=== PATIENT | male | born 1950 | race Caucasian/White ===

== ENCOUNTER → 2017-02-03 14:51 | Inpatient (IN) | payer MEDICAID, OTHER ==
--- NOTE | 2017-01-31 08:47 | GHP ---
[f rep st] PREOP HISTORY AND PHYSICAL DATE OF ADMISSION: 02/01/2017 PREOP DIAGNOSIS: Avascular necrosis, left femoral head. PLANNED PROCEDURE: Left total hip arthroplasty through an anterior approach. HPI: The patient is a 66-year-old male who is status post a right femoral neck fracture with some A VN that underwent a total hip arthroplasty on the right. He has done well with that. He now is tanna dy to proceed with a total hip arthroplasty on the left. PRIOR MEDICAL HISTORY: Hypertension, high cholesterol. MEDICATIONS: Atorvastatin 20 mg, carvedilol 12.5 mg, lisinopril 40 mg, lovastatin 20 mg, amlodipine 10 mg, benazepril 40 mg. ALLERGIES: No known drug allergies. SOCIAL HISTORY: Retired. Does not smoke. Occasional alcohol use. REVIEW OF SYSTEMS: No shortness of breath or chest pain. PHYSICAL EXAM: VITAL SIGNS: Blood pressure is 167/86, heart rate is 88, respiratory rate is 14 on room air. HEENT: Normocephalic, atraumatic. Extraocular muscles intact. NECK: Supple. There is no lymphadenopathy. No JVD. CHEST: Clear to auscultation. CARDIOVASCULAR: Regular rate and rhy thm. ABDOMEN: Obese, soft, nondistended. No hepatosplenomegaly. EXTREMITIES: Leg lengths are eq ual. Left hip has full extension, 100 degrees of flexion. Neutral internal rotation. About 10 deg daniel of external rotation. Both these motions cause pain. He has 20 degrees of abduction. Motor s trength hip flexion, knee extensors are 4/5. Remainder of the lower extremity strength is 5/5. He has 1+ dorsalis pedis and posterior tibial pulses. X-RAYS: Two views of the hip show severe osteoarthritis of the left hip. There is some collapse of the femoral head. ASSESSMENT: Osteoarthritis, left hip with probable avascular necrosis. PLAN: I recommend proceeding with a total hip arthroplasty on the left. He has done well on the [facility] side. He is ready to proceed. The risks and benefits, including a 1% to 2% dislocation rate an d potential blood clots were all discussed. He understands these risks and wished to proceed. We w ill plan on surgery next Monday afternoon at the [facility]. /[id number]/MODL
--- NOTE | 2017-02-01 12:57 | PDHPUP ---
History & Physical Update H&P update statement: This history and physical update is based on an assessment of the patient which was completed after admission or registration (within 24 hours), but prior to the surgery/procedure. H&P update: H&P reviewed & patient examined, no change in patient's condition since H&P completed
--- NOTE | 2017-02-01 13:01 | PDANEPAE ---
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 RT HIP FRACTURE. REMVL LIPOMA BUTTOCKS AREA ANE Review of Systems - Exercise capacity METS (RN): 4 METS ANE Patient History - Allergies Allergies/Adverse Reactions: No Known Allergies Allergy (Unverified 09/27/14 10:37) - Home Medications Home Medications: Aspirin [Aspirin 325 mg (*)] 325 mg PO HS 09/27/14 [Last Taken 01/30/17 22:00] Lovastatin 20 mg PO DAILY06 09/27/14 [Last Taken 01/31/17 07:00] BENAZEPRIL HCL DAILY06 01/19/17 [Last Taken 01/31/17 07:00] Carvedilol BID 01/19/17 [Last Taken 02/01/17 07:00] HCTZ (*) DAILY06 01/19/17 [Last Taken 01/31/17 07:00] Herbal Drugs DAILY 01/19/17 [Last Taken 1 Week Ago] - NPO status NPO Since - Liquids (Date): 02/01/17 NPO Since - Liquids (Time): 09:30 NPO Since - Solids (Date): 01/31/17 NPO Since - Solids (Time): 23:59 - Anes Hx Anes Hx: no prior problems - Smoking Hx Smoking Status: Former smoker ANE Labs/Vital Signs - Vital Signs Blood Pressure: 156/91 Heart Rate: 94 Respiratory Rate: 18 O2 Sat (%): 95 Height: 180.34 cm Weight: 91.626 kg ANE Physical Exam - Airway Mallampati Score: Class 2 Mouth exam: normal dental/mouth exam - Pulmonary Pulmonary: no respiratory distress - Cardiovascular Cardiovascular: regular rate and rhythym - ASA Status ASA Status: II ANE Anesthesia Plan Anesthesia Plan: GA w LMA (pt prefers not to have sab)
--- NOTE | 2017-02-01 15:20 | POSTOPPROG ---
Post Op Note Date of Operation: 02/01/17 Surgeon: Adama Hernandez Precise Winder: Virgen Stout Anesthesiologist: Jean Carlos Anesthesia: GET(General Endotracheal) Pre-op Diagnosis: AVN Lt hip Post-op Diagnosis: same Procedure: LT MATTHEW via anterior approach Findings: AVN head Inf/Abcess present in the surg proc area at time of surgery?: No EBL: 100-500 Complications: none
[2017-02-01] MEDS: HYDROmorphONE/DILAUDID 1 MG/ML SYR IVP PRN ×6 (16:02→16:52)
--- NOTE | 2017-02-01 16:04 | POSTANESTH ---
Post Anesthetic Evaluation Cardiovascular Status: Normal, Stable Respiratory Status: Normal, Stable Level of Consciousness/Mental Status: Can Participate in Eval Pain Control: Adequate, Prn Tx Ordered Nausea/Vomiting Control: Adequate, Prn Tx Ordered Complications Possibly Related to Anesthesia: None Noted
[2017-02-01] MEDS: fentaNYL 100 MCG/2 ML INJ IVP PRN ×2 (16:08→16:18)
[2017-02-01] MEDS: oxyCODONE IR 5 MG TAB PO PRN (17:13)
[2017-02-01] MEDS: ACETAMINOPHEN 325 MG TAB PO SCH (18:58)
[2017-02-01] MEDS: ceFAZolin 2 GM/DEXTROSE 100 ML IV SCH (22:03)
[2017-02-01] MEDS: LR 1,000 ML IV SCH (22:04)
[2017-02-01] MEDS: FAMOTIDINE 20 MG TAB PO SCH (22:04)
[2017-02-01] MEDS: SENNOSIDES/DOCUSATE SODIUM TAB PO SCH (22:05)
[2017-02-01] MEDS: CYCLOBENZAPRINE 10 MG TAB PO PRN (22:18)
[2017-02-02] MEDS: ACETAMINOPHEN 325 MG TAB PO SCH ×5 (00:15→23:55)
--- NOTE | 2017-02-02 02:19 | GOP ---
[f rep st] OPERATIVE REPORT DATE OF OPERATION: 02/01/2017 SURGEON: Adama Hernandez MD OFFICE MESSENGER HELPER: Virgen Stout MD ANESTHESIA: General. ANESTHESIOLOGIST: Trever Evangelista MD PREOPERATIVE DIAGNOSIS: Avascular necrosis, left femoral head. POSTOPERATIVE DIAGNOSIS: avascular necrosis, left femoral head. PROCEDURE PERFORMED: Left total hip arthroplasty through an anterior approach. FINDINGS: ESTIMATED BLOOD LOSS: 400 mL. INDICATIONS: The patient is a 66-year-old male with bilateral AVN. He underwent a right total hip arthroplasty. He has worsening pain, collapse on the left side, and decision was made to proceed wi th a left total hip arthroplasty. DESCRIPTION OF PROCEDURE: After appropriate informed consent was obtained, patient was taken to the operating room, placed supine on the operative table. Timeout was performed. Patient was identifi ed, correct site was identified, matched with the radiographs available in the room. He received [address] Evangelista administered general endotracheal tube anesthesia. He was then positioned o n the operating room table with the arch table supporting the left lower extremity, a well-padded we leg harrison supporting the right lower extremity. The left hip was prepped and draped usual steri le fashion. I made a standard anterior incision. Bleeding was controlled with electrocautery. Fascia overlying the TFL was incised, and I bluntly dissected down to the circumflex femoral vessels. These were ca uterized using the Aquamantys device. Then using a James elevator, soft tissues were elevated off th e anterior aspect of the hip capsule. A Cobra retractor was placed around the inferior femoral neck , superior femoral neck. I incised the capsule and performed a capsulotomy. Retractors were then p laced within the capsule, and I made my femoral neck cut with the oscillating saw. Head and neck we re removed. What was remaining of the labrum was removed with a rongeur as superior bone spurs. I then began reaming the cup, starting at a 55 and reaming up to a 59. We trialed a 59 and placed a 6 0 cup with 1 superior screw. Confirmed the position with AP fluoroscopic images. A neutral liner w as placed. We then turned our attention to the femur. The remaining capsule was removed posteriorly. We exten ded the hip to the floor, adducted it 30 degrees and externally rotated it to 90. We then began bro aching up to a size 5 with good purchase. We trialed a 0+5 and 7.5. The 7.5 gave us the best stabi lity. The hip was reduced and dislocated, reversing the procedure from taking it from abduction and extension up to neutral extension and neutral internal rotation and adduction. The final #5 stem w as tapped into place, tapped our 7.5 mm head, reduced the hip. It was stable at external rotation t o 90 degrees. Final imaging was obtained. Wound was irrigated. The fascia overlying the TFL was c losed with 0 Vicryl. I placed 5 mL of PRP beneath the capsular repair, 5mL on top of the capsular r epair. Superficial layers closed with 2-0 Vicryl. Skin was closed with a 4-0 Quill stitch in a sub cuticular fashion. Steri-Strips were applied to the skin. Occlusive dressing was applied. The patient was awakened from anesthesia, taken to recovery room in satisfactory condition. There w ere no immediate intraoperative complications. Virgen Stout' assistance was required throughout the en tire case. IMPLANT USED: A [place] size 5 Accolade II, 127-degree neck angle stem with a 60 Tritanium hemisphe rical cup, 1 superior screw, neutral liner and a +7.5 mm ceramic head. COMPLICATIONS: None. DRAINS: None. /[id number]/MODL
[2017-02-02 04:51] LABS: HEMATOCRIT 28.8 % (40.0-51.0); HEMOGLOBIN 9.9 g/dL (13.7-17.5)
[2017-02-02] MEDS: LR 1,000 ML IV SCH (05:50)
[2017-02-02] MEDS: ceFAZolin 2 GM/DEXTROSE 100 ML IV SCH (05:51)
[2017-02-02] MEDS: FAMOTIDINE 20 MG TAB PO SCH ×2 (08:59→20:44)
[2017-02-02] MEDS: SENNOSIDES/DOCUSATE SODIUM TAB PO SCH ×2 (08:59→20:44)
[2017-02-02] MEDS: oxyCODONE IR 5 MG TAB PO PRN ×3 (09:00→23:55)
--- NOTE | 2017-02-02 14:48 | SOAPPROG ---
SOAP Progress Note Assessment/Plan: Assessment: Plan: - PT this afternoon, likely to go home tomorrow 02/02/17 14:47 Subjective: Reports shooting pain radiating down the leg, similar to before surgery Objective: Vital Signs Temp Pulse Resp BP Pulse Ox 36.8 C 98 16 110/70 94 02/02/17 07:28 02/02/17 08:20 02/02/17 07:28 02/02/17 08:20 02/02/17 08:20 Laboratory Results 02/02/17 04:21 02/01/17 02/02/17 02/03/17 05:59 05:59 05:59 Intake Total 2200 400 Output Total 3450 225 Balance -1250 175 dressing CDI, compartments soft, neg hommans =, nvi - Time Spent With Patient Time Spent With Patient: 10 - Pending Discharge Pending Discharge Within 24 Hours: No Pending Discharge Within 48 Hours: Yes Pending Discharge Date: 02/04/17 Pending Discharge Time: 11:00 ICD10 Worksheet Patient Problems: Problems Problem Status Onset Femur fracture Acute
--- NOTE | 2017-02-02 16:29 | ASMTCASEMG ---
Living Arrangements What is your living Answers: Alone arrangement? Who do you live with? Discharge Plan Comments Coordination Status Comments Notes: Pt had planned hip sx. OT rec home vs. HHC vs. SNF, PT rec HHC vs. SNF. CM to follow pt progress for d/c POC. Date Signed: 02/02/2017 04:28 PM Electronically Signed By:Lisa Reyes
[2017-02-02] MEDS: CYCLOBENZAPRINE 10 MG TAB PO PRN (18:19)
[2017-02-03 05:05] LABS: HEMATOCRIT 25.2 % (40.0-51.0); HEMOGLOBIN 8.7 g/dL (13.7-17.5)
[2017-02-03] MEDS: oxyCODONE IR 5 MG TAB PO PRN ×4 (05:19→14:44)
[2017-02-03] MEDS: ACETAMINOPHEN 325 MG TAB PO SCH ×2 (05:20→11:28)
[2017-02-03 08:29] VITALS: RESP 18
[2017-02-03] MEDS: FAMOTIDINE 20 MG TAB PO SCH (08:41)
[2017-02-03] MEDS: SENNOSIDES/DOCUSATE SODIUM TAB PO SCH (08:41)
--- NOTE | 2017-02-03 09:00 | SOAPPROG ---
SOAP Progress Note Assessment/Plan: Assessment: Plan: 02/03/17 08:59 DC home if clears PT and good pain control Xarelto x 21 days f/u [facility] 2 weeks Subjective: Increased pain this am Objective: Pain with PROM hip HIp ER 2+ dp/tp pulses Xray this am hip located calf soft Vital Signs Temp Pulse Resp BP Pulse Ox 36.8 C 93 18 134/80 H 94 02/03/17 08:27 02/03/17 08:27 02/03/17 08:27 02/03/17 08:27 02/03/17 08:27 Laboratory Results 02/03/17 04:27 02/02/17 02/03/17 02/04/17 05:59 05:59 05:59 Intake Total 5510 965 Output Total 9479 264 Balance -1250 -50 ICD10 Worksheet Patient Problems: Problems Problem Status Onset Femur fracture Acute
--- NOTE | 2017-02-03 09:59 | PDIAF ---
- Diagnosis Code Status: Full Code - Medication Management Discharge Medications: Medications to Continue on Transfer Aspirin [Aspirin 325 mg (*)] 325 mg PO HS 09/27/14 [Last Taken 01/30/17 22:00] Benazepril HCl [Lotensin] 40 mg PO DAILY@01/19/17 [Last Taken 01/31/17 07:00] Carvedilol [Coreg] 12.5 mg PO BID@01/19/17 [Last Taken 02/01/17 07:00] Herbals/Supplements -Info Only 1 ea PO DAILY 01/19/17 [Last Taken 1 Week Ago] Hydrochlorothiazide [HCTZ (*)] 25 mg PO DAILY@01/19/17 [Last Taken 01/31/17 07:00] Atorvastatin Calcium [Lipitor 20 mg (*)] 20 mg PO DAILY@02/01/17 [Last Taken 01/31/17] oxyCODONE IR [Oxycodone Ir (*)] 5 mg PO Q4 PRN 02/01/17 [Last Taken 02/01/17 03: 00] Discharge Medications: Refer to the Discharge Home Medication list for PRN reason. PICC Care - Routine: N/A - Orders Services needed: Home Care, Physical Therapy, Occupational Therapy Home Care Face to Face: I certify that this patient was under my care and that I had the required [id number] encounter meeting the encounter requirements on the discharge day. My findings support the fact that the patient is homebound as defined in CMS Chapter 7 Medicare Benefits Manual 30.1.1, The condition of the patient is such that there exists a normal inability to leave home and consequently, leaving home would require a considerable and taxing effort. Diet Recommendation: no restrictions on diet Diet Texture: Regular Texture Diet Gilberto Stockings Discontinue Date: 10 days PO Wound Care Instructions: Keep wound dry x 7 days Sutures/[place] Site: lt hip subcuticular Activity/Weight Bearing Restrictions: WBAT LLE - Follow Up Care Current Providers and Referrals: Maverick Spencer MD [Primary Care Provider] - Adama Hernandez MD [Medical Doctor] -
[2017-02-03 11:48] VITALS: BP 157/77; PULSE 98; TEMP 98.1; O2SAT 99
[~2017-02-03 14:51] MED LIST: ALBUTEROL 3 ML DEYVIAL IH PRN; BISACODYL 10 MG SUPP PR PRN; BUPIVACAINE 0.5% 30 ML SDV ONE; CALCIUM CHLORIDE 1 GM/10 ML INJ ONE; DEXAMETHASONE 4 MG/ML VIAL ONE; DIPHENOXYLATE/ATROPINE LOMOTIL 1 TAB PO PRN; HYDROmorphONE/DILAUDID 1 MG/ML SYR ONE; HYDROmorphONE/DILAUDID 2 MG/ML INJ ONE; KETOROLAC 30 MG/1 ML SDV ONE; LABETALOL HCL 5 MG/ML 20 ML MDV ONE; LABETALOL HCL 50 MG/10 ML SYR IVP PRN; LACTULOSE 20 GM/30 ML UDCUP PO PRN; LIDOCAINE 2% 5 ML SDV ONE; LR 1,000 ML IV ONE; LR 500 ML IV PRN; MAGNESIUM HYDROXIDE 30 ML UDCUP PO PRN; MEPERIDINE 25 MG/ML SYR IVP PRN; METOCLOPRAMIDE 10 MG/2 ML VIAL IVP PRN; MIDAZOLAM 2 MG/2 ML VIAL IVP ONE; NALOXONE HCL 0.4 MG/ML INJ IVP PRN; ONDANSETRON 4 MG/2 ML VIAL IVP PRN; ONDANSETRON 4 MG/2 ML VIAL ONE; ONDANSETRON DISINTEGRATING 4 MG TAB PO PRN; PHARMACY PAIN CONSULT 1 EA MISC PRN; POLYETHYLENE GLYCOL 3350 17 GM PKT PO PRN; PROMETHAZINE HCL 25 MG SUPPR PR PRN; PROMETHAZINE HCL 25 MG/ML INJ IVP PRN; PROPOFOL 200 MG/20 ML VIAL ONE; RIVAROXABAN 10 MG TAB PO SCH; ROCURONIUM 50 MG/5 ML VIAL ONE; SUGAMMADEX SODIUM 200 MG/2 ML VIAL IVP ONE; TEMAZEPAM 15 MG CAP PO PRN; THROMBIN (BOVINE) 5,000 UNIT VIAL TP ONE; ceFAZolin 2 GM/DEXTROSE 100 ML IV ONE; diphenhydrAMINE 25 MG CAP PO PRN; fentaNYL 100 MCG/2 ML INJ ONE; oxyCODONE IR 5 MG TAB ONE
--- NOTE | 2017-02-04 08:51 | ASDISCHSUM ---
Discharge Information Plan Status:Home with Home Health Medically Cleared to Leave: Discharge Date:02/03/2017 02:51 PM CM D/C Disposition:Home Health Service ADT D/C Disposition:Home, Routine, Self-Care Projected Discharge Date:02/03/2017 02:51 PM Transportation at D/C:Taxicab Discharge Delay Reason: Follow-Up Date:02/03/2017 02:51 PM Discharge Slot: Final Diagnosis: Placement Information Patient Contact Information Contact Name:JUSTIN Relationship:Other Address: City: [facility] Phone: State/Zip Code: Email: Financial Information Financial Class:Medicare Advantage Plans Primary Plan Desc:[facility] ADV[employer]AGE PLANS Primary Plan Number:[id number] Secondary Plan Desc: Secondary Plan Number: Assessment Information [facility] Initial CM Assessment Living Arrangements What is your living Answers: Alone arrangement? Who do you live with? Discharge Plan Comments Coordination Status Comments Notes: Pt had planned hip sx. OT rec home vs. HHC vs. SNF, PT rec HHC vs. SNF. CM to follow pt progress for d/c POC. Date Signed: 02/02/2017 04:28 PM Electronically Signed By:Lisa Reyes Intervention Information Intervention Type:*IM-Signed Date of Service:02/03/2017 11:44 AM Patient Type:Inpatient Staff Member:Rebecca Ojeda Hours: Discipline: Severity: Comment:
--- NOTE | 2017-02-04 08:55 | ASMTCMCOM ---
CM Note CM Note Notes: Pt medically stable for d/c w [facility]. Pt provided information on SNF which he declines. Date Signed: 02/04/2017 08:54 AM Electronically Signed By:Lisa Reyes
== END | disposition home health service (06) | DRG 470 ==
LOC: F3N 02-01 11:45
PROVIDERS: ADMIT Orthopaedic Surgery; ATTEND Orthopaedic Surgery
PROC: 0SRB04Z Replacement of Left Hip Joint with Ceramic on Polyethylene Synthetic Substitute, Open Approach (ICD-10-PCS; principal; 2017-02-01 13:30)
DX: M87.252 Osteonecrosis due to previous trauma, left femur (principal); M16.12 Unilateral primary osteoarthritis, left hip; Z96.641 Presence of right artificial hip joint
CPT/HCPCS: 97110-GP; 97116-GP; 97161-GP; 97165-GO; 97535-GO; C1713; G8978-GP-CK; G8979-GP-CI; G8987-GO-CJ; G8988-GO-CH; J0690; J1100; J1170; J1885; J2250; J2405; J2704; J3010; J3490